=== PATIENT | female | born 1960 | race Caucasian/White ===

== ENCOUNTER 2017-05-07 23:17 | Emergency (ER) | payer OTHER ==
[2017-05-07] MEDS ORDERED: IBUPROFEN 600 MG TAB PO ONE (23:23)
[2017-05-07] MEDS ORDERED: IBUPROFEN SUSP 100 MG/5 ML UDCUP PO ONE (23:23)
[2017-05-07 23:26] VITALS: BP 125/84; PULSE 70; RESP 18; TEMP 97.9; O2SAT 95
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
== END 2017-05-08 01:06 | disposition home or self-care (01) ==
LOC: CED 23:17
DX: S82.832A Other fracture of upper and lower end of left fibula, initial encounter for closed fracture (principal); Z98.890 Other specified postprocedural states; W22.8XXA Striking against or struck by other objects, initial encounter
CPT/HCPCS: 73564-PO; 73590-PO; L1830

== ENCOUNTER → 2017-10-25 | Outpatient (CLI) | payer OTHER | LOC: CIMAGING 10:48 | PROVIDERS: ATTEND Family Medicine | DX: Z12.31 Encounter for screening mammogram for malignant neoplasm of breast (principal) | CPT/HCPCS: G0202 ==

== ENCOUNTER → 2018-12-04 | Outpatient (CLI) | payer OTHER | LOC: CIMAGING 14:59 | PROVIDERS: ATTEND Family Medicine | DX: Z12.31 Encounter for screening mammogram for malignant neoplasm of breast (principal); Z80.3 Family history of malignant neoplasm of breast ==